=== PATIENT | female | born 1960 | race Caucasian/White ===

== ENCOUNTER → 2016-10-07 | Outpatient (CLI) | payer OTHER ==
[2016-10-07 09:02] LABS: CREATININE 1.1 mg/dL (0.6-1.0); DIRECT BILIRUBIN 0.1 mg/dL (0.0-0.2); GFR 51.6; TOTAL BILIRUBIN 0.4 mg/dL (0.2-1.0); TOTAL PROTEIN 7.4 g/dL (6.4-8.2)
--- NOTE | 2016-10-07 10:02 | RAD ---
EXAM: BREAST LEFT, MAMMO PIPE DIAG LT HISTORY: Follow-up of left breast mass. COMPARISON: April 06, 2016 Standard mammographic views are obtained of the bilateral breasts. This study was interpreted with the benefit of Computerized Aided Detection (CAD). FINDINGS: The breast parenchyma shows scattered fibroglandular densities. Breast parenchyma level B. There is repeat demonstration of a small well-circumscribed mass in the left upper outer breast which appears similar in appearance when compared to prior. The patient was then sent ultrasound to further evaluate the region. Focused ultrasound images were obtained through the 4:00 position of the left breast. At 4:00 position of the left breast 6 cm from the nipple there is repeat demonstration of a hypoechoic lesion which appears similar in appearance and size when compared to prior exam measuring approximately 4 x 3 mm which is similar to prior when measured in a similar plane. IMPRESSION: No major change in size of hypoechoic mass of the left breast when compared to prior exam. Recommend that the patient return in 6 months for repeat mammogram and ultrasound to ensure no growth. BI-RADS CATEGORY: 3 PROBABLE BENIGN-SHORT TERM F/U RECOMMENDED FOLLOW-UP: 6M 6 MONTH FOLLOW-UP PQRS compliance statement: Patient information was entered into a reminder system with a target due date for the next mammogram. Mammography is a sensitive method for finding small breast cancers, but it does not detect them all and is not a substitute for careful clinical examination. A negative mammogram does not negate a clinically suspicious finding and should not result in delay in biopsying a clinically suspicious abnormality. "Our facility is accredited by the [employer] Mammography [employer]."
== END | disposition home or self-care (01) ==
LOC: MAMMO 08:13
PROVIDERS: ATTEND Nurse Practitioner Family
DX: N63 Unspecified lump in breast (principal)
CPT/HCPCS: 36415; 76641; 80048; 80061; 80076; G0206; G0279; 77061; 77065

== ENCOUNTER → 2017-04-03 | Outpatient (CLI) | payer OTHER ==
--- NOTE | 2017-04-03 11:24 | RAD ---
DATE: 04/03/2017 EXAM: MAMMO PIPE KARISHMA BARNETT, BREAST LEFT HISTORY: Follow-up left breast lesion. COMPARISON: Left breast mammogram and ultrasound 10/07/2016 and 04/06/2017, 04/01/2016 This study was interpreted with the benefit of Computerized Aided Detection (CAD). The breast parenchyma shows scattered fibroglandular densities. Breast parenchyma level B. FINDINGS: Bilateral diagnostic mammogram: Bilateral digital 2-D and 3-D tomosynthesis CC and MLO views were obtained. There is stable bilateral circumscribed masses in the upper outer breasts. No new suspicious mass, calcination or architectural distortion. No significant change from prior examination. Limited left breast ultrasound: At the 4:00 position 6 cm from the nipple, there is no significant change in a 0.3 cm hypoechoic structure with internal debris and no internal blood flow. Impression: 1. Stable tiny left breast hypoechoic structure which may represent a complicated cyst. BI-RADS Category 3, probably benign findings. Follow-up limited left breast ultrasound in 6 months to assess for stability. 2. No mammographic evidence of malignancy in the right breast. BI-RADS CATEGORY: 3 PROBABLY BENIGN FINDING(S)-SHORT INTERVAL FOLLOW-UP SUGGESTED RECOMMENDED FOLLOW-UP: 6M 6 MONTH FOLLOW-UP PQRS compliance statement: Patient information was entered into a reminder system with a target due date for the next mammogram. Mammography is a sensitive method for finding small breast cancers, but it does not detect them all and is not a substitute for careful clinical examination. A negative mammogram does not negate a clinically suspicious finding and should not result in delay in biopsying a clinically suspicious abnormality. "Our facility is accredited by the [employer] Mammography [employer]."
== END | disposition home or self-care (01) ==
LOC: MAMMO 08:42
PROVIDERS: ATTEND Surgery
DX: R92.8 Other abnormal and inconclusive findings on diagnostic imaging of breast (principal); Z87.891 Personal history of nicotine dependence
CPT/HCPCS: 76641; 77066; G0279; 77062

== ENCOUNTER → 2017-10-25 | Outpatient (CLI) | payer OTHER ==
--- NOTE | 2017-10-25 08:53 | RAD ---
Left breast ultrasound, 10/25/2017: History: Follow-up nodule Previous studies have demonstrated a small smooth nodule at the 4:00 location approximately 6 cm from the nipple. It currently measures 3 x 4 x 3 mm. Its margins are smooth. There are low level internal echoes. There is no significant posterior acoustic enhancement or shadowing. It has a relatively benign appearance and probably represents a complicated cyst or small fibroadenoma. It has shown no definite change since studies dating back to 04/06/2016. No new abnormality is seen in this region. IMPRESSION: Unchanged probably benign left breast nodule. Follow-up left breast ultrasound in 6 months at the time of the patient's yearly mammography is suggested. BI-RADS 3-probably benign findings
== END | disposition home or self-care (01) ==
LOC: MAMMO 07:46
PROVIDERS: ATTEND Physician Assistant Medical
DX: R92.8 Other abnormal and inconclusive findings on diagnostic imaging of breast (principal); E55.9 Vitamin D deficiency, unspecified; E78.5 Hyperlipidemia, unspecified; Z87.891 Personal history of nicotine dependence
CPT/HCPCS: 76641

== ENCOUNTER → 2018-12-05 | Outpatient (CLI) | payer OTHER ==
[2018-12-05 09:50] LABS: BASO % 1 % (0-3); EOS # 0.1 x10^3/uL (0.0-0.7); EOS % 2 % (0-3); HEMOGLOBIN 13.9 g/dL (12.0-15.5); LYMPH # 1.9 x10^3/uL (1.0-4.8); LYMPH % 42 % (24-48); MEAN CORPUSCULAR HEMOGLOBIN 30 pg (25-35); MEAN CORPUSCULAR HGB CONC 34 g/dL (31-37); MEAN CORPUSCULAR VOLUME 88 fL (79-100); MONO # 0.4 x10^3/uL (0.0-1.1); MONO % 9 % (0-9); NEUT # 2.1 x10^3uL (1.8-7.7); NEUT % 46 % (31-73); PLATELET COUNT 286 x10^3/uL (140-400); RED BLOOD COUNT 4.64 x10^6/uL (3.50-5.40); RED CELL DISTRIBUTION WIDTH 12.6 % (11.5-14.5); WHITE BLOOD COUNT 4.4 x10^3/uL (4.0-11.0)
[2018-12-05 10:00] LABS: ALBUMIN/GLOBULIN RATIO 1.2 (1.0-1.7); C REACTIVE PROTEIN 2.8 mg/L (0-3.3); CALCIUM 9.5 mg/dL (8.5-10.1); CREATININE 1.1 mg/dL (0.6-1.0); POTASSIUM 4.2 mmol/L (3.5-5.1); TOTAL BILIRUBIN 0.4 mg/dL (0.2-1.0); TOTAL PROTEIN 7.4 g/dL (6.4-8.2)
[2018-12-05 10:57] LABS: SEDIMENTATION RATE 8 (0-25)
== END | disposition home or self-care (01) ==
LOC: LAB 07:44
PROVIDERS: ATTEND Internal Medicine Rheumatology
DX: M25.50 Pain in unspecified joint (principal)
CPT/HCPCS: 36415; 80053; 85025; 85651; 86140

== ENCOUNTER → 2018-12-24 | Outpatient (CLI) | payer OTHER ==
--- NOTE | 2018-12-24 13:44 | RAD ---
DATE: 12/24/2018 EXAM: MAMMO PIPE KARISHMA SCHROEDERAT, BREAST LEFT HISTORY: Left breast mass, six-month follow-up COMPARISON: Bilateral mammogram 04/03/2017, left mammogram 10/07/2016 This study was interpreted with the benefit of Computerized Aided Detection (CAD). Targeted sonographic evaluation of the left breast was performed. Breast Density: SCATTERED The breast parenchyma shows scattered fibroglandular densities. Breast parenchyma level B. FINDINGS: Bilateral CC and MLO views of the breasts were performed. Bilateral breast tomosynthesis was performed in CC and MLO projections. Right breast: There are no suspicious microcalcifications, masses or areas of architectural distortion. Left breast: There are no suspicious microcalcifications, masses or areas of architectural distortion. Findings are stable from prior mammogram. Targeted sonographic evaluation of the left breast was performed at the 4:00 position, 6 cm from the nipple. There is a stable hypoechoic mass with circumscribed margins which is parallel and suspected be cystic. Findings are not significantly changed dating back to 10/07/2016 and present benign. Findings favor a complicated cyst measuring 3 x 2 mm. IMPRESSION: Benign findings of the left breast with a 3 x 2 mm complicated cyst. Negative right breast. BI-RADS CATEGORY: 2 BENIGN FINDING(S) RECOMMENDED FOLLOW-UP: 12M 12 MONTH FOLLOW-UP PQRS compliance statement: Patient information was entered into a reminder system with a target due date 12/25/2019 for the next mammogram. Mammography is a sensitive method for finding small breast cancers, but it does not detect them all and is not a substitute for careful clinical examination. A negative mammogram does not negate a clinically suspicious finding and should not result in delay in biopsying a clinically suspicious abnormality. "Our facility is accredited by the [employer] Mammography Program."
== END | disposition home or self-care (01) ==
LOC: MAMMO 12:45
PROVIDERS: ATTEND Surgery
DX: R92.8 Other abnormal and inconclusive findings on diagnostic imaging of breast (principal); N64.89 Other specified disorders of breast
CPT/HCPCS: 76641; 77066; G0279; 77062

== ENCOUNTER → 2019-04-17 | Outpatient (CLI) | payer OTHER ==
--- NOTE | 2019-04-17 16:05 | RAD ---
RENAL COMPLETE BILATERAL History: Chronic kidney disease stage III Comparison: None. Findings: Multiple sonographic images of the kidneys and retroperitoneal structures are submitted. Right kidney measured 10.1 x 4.4 x 5.2 cm without hydronephrosis. Left kidney measured 10.7 x 4.8 x 3.5 cm. There is no hydronephrosis of either kidney. There is some increased echogenicity of the left renal parenchyma. Urinary bladder is not distended. Inferior vena cava and abdominal aorta are not imaged. There is some echogenicity along the superior left kidney otherwise difficult to characterize on submitted images. Impression: 1. There is no hydronephrosis of either kidney. There is nonspecific echogenicity along the superior aspect of left kidney otherwise difficult to characterize by this exam. Adjacent adrenal mass would be more definitively excluded with CT. There is some increased echogenicity most notable of the left kidney, may be due to medical renal disease. Electronically signed by: Gilbert Pat MD (04/17/2019 4:02 PM) [id number]
[2019-04-17 16:21] LABS: CALCIUM 9.2 mg/dL (8.5-10.1); CREATININE 0.9 mg/dL (0.6-1.0); GFR 64.3; PHOSPHORUS 3.5 mg/dL (2.6-4.7); POTASSIUM 3.8 mmol/L (3.5-5.1)
[2019-04-17 16:37] LABS: BASO % 1 % (0-3); EOS % 1 % (0-3); HEMOGLOBIN 13.7 g/dL (12.0-15.5); LYMPH # 1.6 x10^3/uL (1.0-4.8); LYMPH % 32 % (24-48); MEAN CORPUSCULAR HEMOGLOBIN 30 pg (25-35); MEAN CORPUSCULAR HGB CONC 33 g/dL (31-37); MEAN CORPUSCULAR VOLUME 89 fL (79-100); MONO # 0.3 x10^3/uL (0.0-1.1); MONO % 7 % (0-9); NEUT % 60 % (31-73); PLATELET COUNT 279 x10^3/uL (140-400); RED BLOOD COUNT 4.59 x10^6/uL (3.50-5.40); RED CELL DISTRIBUTION WIDTH 12.4 % (11.5-14.5)
[2019-04-17 16:58] LABS: CLARITY,URINE CLEAR; COLOR,URINE YELLOW
[2019-04-17 16:59] LABS: BACTERIA,URINE 0 /HPF (0-FEW); BILIRUBIN,URINE NEG (NEG); GLUCOSE,URINE NEG (NEG); NITRITE,URINE NEG (NEG); RBC,URINE 0 /HPF (0-2); SQUAMOUS EPITHELIAL CELL,UR FEW /LPF; UROBILINOGEN,URINE 0.2 mg/dL (0.2 mg/dL); WBC,URINE RARE /HPF (0-4)
[2019-04-18 03:06] LABS: C3 COMPLEMENT 133 mg/dL (82-167); C4 COMPLEMENT 19 mg/dL (14-44)
[2019-04-18 04:07] LABS: MICROALB RD UR 3.3 ug/mL (Not Estab.)
[2019-04-18 14:01] LABS: CREATININE,RANDOM URINE 53.5 mg/dL (Not Establ.)
[2019-04-18 19:07] LABS: ANA INTERP Negative (.)
[2019-04-19 15:07] LABS: IMMUNOGLOBULIN A 130 mg/dL (87-352); IMMUNOGLOBULIN G 805 mg/dL (700-1600); IMMUNOGLOBULIN M 34 mg/dL (26-217)
[2019-04-19 16:07] LABS: C ANCA <1:20 titer (Neg:<1:20); P ANCA <1:20 titer (Neg:<1:20)
[2019-04-19 21:06] LABS: ALBUM 4.3 g/dL (2.9-4.4); ALPHA 1 0.3 g/dL (0.0-0.4); ALPHA 2 0.8 g/dL (0.4-1.0); BETA 1.2 g/dL (0.7-1.3); GAMMA 0.7 g/dL (0.4-1.8); PROTEIN TOTAL 7.2 g/dL (6.0-8.5); SPEP AG RATIO 1.5 (0.7-1.7)
== END | disposition home or self-care (01) ==
LOC: US 15:12
PROVIDERS: ATTEND Family Medicine
DX: N18.3 Chronic kidney disease, stage 3 (moderate) (principal)
CPT/HCPCS: 36415; 76770; 80048; 81001; 82043; 82570; 84100; 84156; 84165; 85025; 86021; 86038; 86160; 86334; 87086

== ENCOUNTER → 2019-06-10 | Outpatient (CLI) | payer OTHER ==
[2019-06-10 09:06] LABS: BASO % 1 % (0-3); EOS % 1 % (0-3); HEMATOCRIT 42.9 % (36.0-47.0); HEMOGLOBIN 14.5 g/dL (12.0-15.5); LYMPH # 1.4 x10^3/uL (1.0-4.8); LYMPH % 24 % (24-48); MEAN CORPUSCULAR HEMOGLOBIN 30 pg (25-35); MEAN CORPUSCULAR HGB CONC 34 g/dL (31-37); MEAN CORPUSCULAR VOLUME 87 fL (79-100); MONO # 0.3 x10^3/uL (0.0-1.1); MONO % 6 % (0-9); NEUT # 3.9 x10^3uL (1.8-7.7); NEUT % 69 % (31-73); PLATELET COUNT 282 x10^3/uL (140-400); RED BLOOD COUNT 4.91 x10^6/uL (3.50-5.40); RED CELL DISTRIBUTION WIDTH 12.3 % (11.5-14.5); WHITE BLOOD COUNT 5.8 x10^3/uL (4.0-11.0)
[2019-06-10 09:10] LABS: ALBUMIN 4.1 g/dL (3.4-5.0); ALBUMIN/GLOBULIN RATIO 1.3 (1.0-1.7); CALCIUM 9.4 mg/dL (8.5-10.1); GFR 56.9; POTASSIUM 3.9 mmol/L (3.5-5.1); TOTAL BILIRUBIN 0.6 mg/dL (0.2-1.0); TOTAL PROTEIN 7.3 g/dL (6.4-8.2)
[2019-06-10 09:44] LABS: BILIRUBIN,URINE NEG (NEG); CLARITY,URINE HAZY; COLOR,URINE YELLOW; GLUCOSE,URINE NEG (NEG)
[2019-06-10 09:45] LABS: NITRITE,URINE NEG (NEG); UROBILINOGEN,URINE 0.2 mg/dL (0.2 mg/dL)
[2019-06-10 09:46] LABS: BACTERIA,URINE FEW /HPF (0-FEW); SQUAMOUS EPITHELIAL CELL,UR MOD /LPF
[2019-06-10 15:52] LABS: FREE T4 1.02 ng/dL (0.76-1.46); THYROID STIM HORMONE (TSH) 1.453 uIU/mL (0.358-3.740)
[2019-06-10 23:06] LABS: HEMOGLOBIN A1C 5.6 % (4.8-5.6)
== END | disposition home or self-care (01) ==
LOC: LAB 07:24
PROVIDERS: ATTEND Nurse Practitioner Adult Health
DX: N18.3 Chronic kidney disease, stage 3 (moderate) (principal)
CPT/HCPCS: 36415; 80053; 80061; 81001; 83036; 84439; 84443; 85025; 87086

== ENCOUNTER → 2019-07-02 | Outpatient (CLI) | payer OTHER ==
--- NOTE | 2019-07-02 10:56 | RAD ---
Exam: VENOUS LOWER EXTREMITY LEFT Indication: Left lower extremity pain Technique: Color-flow and pulsed wave duplex ultrasound with compression of venous structures of the left lower extremity. Comparison: None Available. Findings: Duplex ultrasound with compression of the deep venous structures of the left lower extremity from the common femoral vein through the popliteal vein is negative for DVT. The posterior tibial and peroneal veins are segmentally visualized and patent where seen. Normal venous waveforms and augmentation are noted throughout. Impression: No evidence for DVT in the left lower extremity. Electronically signed by: Gilbert Espinoza MD (07/02/2019 10:53 AM) [id number]
== END | disposition home or self-care (01) ==
LOC: US 10:14
PROVIDERS: ATTEND Family Medicine
DX: M79.662 Pain in left lower leg (principal)
CPT/HCPCS: 93971

== ENCOUNTER → 2019-09-16 | Outpatient (CLI) | payer OTHER ==
[2019-09-16 10:40] LABS: BASO % 1 % (0-3); EOS # 0.1 x10^3/uL (0.0-0.7); EOS % 2 % (0-3); HEMATOCRIT 40.1 % (36.0-47.0); HEMOGLOBIN 13.4 g/dL (12.0-15.5); LYMPH # 1.5 x10^3/uL (1.0-4.8); LYMPH % 38 % (24-48); MEAN CORPUSCULAR HEMOGLOBIN 30 pg (25-35); MEAN CORPUSCULAR HGB CONC 34 g/dL (31-37); MEAN CORPUSCULAR VOLUME 89 fL (79-100); MONO # 0.3 x10^3/uL (0.0-1.1); MONO % 9 % (0-9); NEUT % 51 % (31-73); PLATELET COUNT 289 x10^3/uL (140-400); RED BLOOD COUNT 4.49 x10^6/uL (3.50-5.40); RED CELL DISTRIBUTION WIDTH 12.9 % (11.5-14.5); WHITE BLOOD COUNT 3.9 x10^3/uL (4.0-11.0)
[2019-09-16 10:48] LABS: CALCIUM 9.3 mg/dL (8.5-10.1); CREATININE 1.1 mg/dL (0.6-1.0); POTASSIUM 4.3 mmol/L (3.5-5.1)
[2019-09-16 11:23] LABS: BACTERIA,URINE FEW /HPF (0-FEW); BILIRUBIN,URINE NEG (NEG); CLARITY,URINE HAZY; COLOR,URINE YELLOW; GLUCOSE,URINE NEG (NEG); NITRITE,URINE NEG (NEG); RBC,URINE OCC /HPF (0-2); UROBILINOGEN,URINE 0.2 mg/dL (0.2 mg/dL)
[2019-09-16 11:24] LABS: HYALINE CASTS, URINE OCC /HPF; SQUAMOUS EPITHELIAL CELL,UR FEW /LPF
[2019-09-16 20:06] LABS: MICROALB RD UR 11.3 ug/mL (Not Estab.)
[2019-09-17 00:07] LABS: CALCIUM PTH 9.8 mg/dL (8.7-10.2); CREATININE PTH 0.87 mg/dL (0.57-1.00); PTH INTACT 69 pg/mL (15-65)
== END | disposition home or self-care (01) ==
LOC: LAB 09:03
PROVIDERS: ATTEND Family Medicine
DX: N18.3 Chronic kidney disease, stage 3 (moderate) (principal)
CPT/HCPCS: 36415; 80048; 81001; 82043; 82570; 83970; 84156; 85025

== ENCOUNTER → 2019-10-15 | Outpatient (CLI) | payer OTHER | END | disposition home or self-care (01) | LOC: LAB 17:50 | PROVIDERS: ATTEND Internal Medicine Cardiovascular Disease | DX: Z20.828 Contact with and (suspected) exposure to other viral communicable diseases (principal); N18.3 Chronic kidney disease, stage 3 (moderate); M79.7 Fibromyalgia | CPT/HCPCS: C9803; U0003; 36415 ==

== ENCOUNTER → 2019-12-31 | Outpatient (CLI) | payer OTHER ==
[2019-12-31 08:40] LABS: CALCIUM 9.3 mg/dL (8.5-10.1); GFR 56.7; POTASSIUM 3.9 mmol/L (3.5-5.1)
[2019-12-31 08:42] LABS: BASO % 1 % (0-3); EOS # 0.1 x10^3/uL (0.0-0.7); EOS % 1 % (0-3); HEMATOCRIT 42.1 % (36.0-47.0); HEMOGLOBIN 14.1 g/dL (12.0-15.5); LYMPH # 1.5 x10^3/uL (1.0-4.8); LYMPH % 32 % (24-48); MEAN CORPUSCULAR HEMOGLOBIN 30 pg (25-35); MEAN CORPUSCULAR HGB CONC 34 g/dL (31-37); MEAN CORPUSCULAR VOLUME 90 fL (79-100); MONO # 0.3 x10^3/uL (0.0-1.1); MONO % 7 % (0-9); NEUT # 2.7 x10^3uL (1.8-7.7); NEUT % 59 % (31-73); PLATELET COUNT 290 x10^3/uL (140-400); RED CELL DISTRIBUTION WIDTH 12.2 % (11.5-14.5); WHITE BLOOD COUNT 4.6 x10^3/uL (4.0-11.0)
[2019-12-31 12:19] LABS: BILIRUBIN,URINE NEG (NEG); CLARITY,URINE CLEAR; COLOR,URINE YELLOW; GLUCOSE,URINE NEG (NEG)
[2019-12-31 12:20] LABS: BACTERIA,URINE 0 /HPF (0-FEW); NITRITE,URINE NEG (NEG); RBC,URINE 0 /HPF (0-2); SQUAMOUS EPITHELIAL CELL,UR FEW /LPF; UROBILINOGEN,URINE 0.2 mg/dL (0.2 mg/dL); WBC,URINE 0 /HPF (0-4)
[2019-12-31 23:07] LABS: CALCIUM PTH 9.7 mg/dL (8.7-10.2); CREATININE PTH 0.91 mg/dL (0.57-1.00); PTH INTACT 50 pg/mL (15-65)
[2020-01-01 06:08] LABS: MICRO CREAT RATIO 7 mg/g creat (0-29); MICROALB RD UR 9.2 ug/mL (Not Estab.); UR PROTEIN RD 9.5 mg/dL (Not Estab.)
== END ==
LOC: LAB 07:40
PROVIDERS: ATTEND Family Medicine
DX: N18.30 Chronic kidney disease, stage 3 unspecified (principal)
CPT/HCPCS: 36415; 80048; 81001; 82043; 82570; 83970; 84156; 85025

== ENCOUNTER → 2020-01-10 | Outpatient (CLI) | payer OTHER ==
--- NOTE | 2020-01-10 18:45 | RAD ---
DATE: 01/10/2020 EXAM: MAMMO PIPE SCREENING BILATERAL HISTORY: Screening COMPARISON: 03/26/2018, 04/03/2017, 10/07/2016, 2016 This study was interpreted with the benefit of Computerized Aided Detection (CAD). Breast Density: SCATTERED The breast parenchyma shows scattered fibroglandular densities. Breast parenchyma level B. FINDINGS: Multiple bilateral benign-appearing masses are unchanged. No mass, suspicious calcification, or architectural distortion in either breast. IMPRESSION: No evidence of malignancy. BI-RADS CATEGORY: 2 BENIGN FINDING(S) RECOMMENDED FOLLOW-UP: 12M 12 MONTH FOLLOW-UP PQRS compliance statement: Patient information was entered into a reminder system with a target due date for the next mammogram. Mammography is a sensitive method for finding small breast cancers, but it does not detect them all and is not a substitute for careful clinical examination. A negative mammogram does not negate a clinically suspicious finding and should not result in delay in biopsying a clinically suspicious abnormality. "Our facility is accredited by the [employer] Mammography Program."
== END ==
LOC: MAMMO 10:46
PROVIDERS: ATTEND Family Medicine
DX: Z12.31 Encounter for screening mammogram for malignant neoplasm of breast (principal)
CPT/HCPCS: 77063; 77067

== ENCOUNTER → 2020-01-13 | Outpatient (CLI) | payer OTHER ==
--- NOTE | 2020-01-13 17:17 | RAD ---
CHEST PA LATERAL Technique: PA and lateral views of the chest were obtained. Clinical History: Reason: CHEST PAIN, MID BACK PAIN / Spl. Instructions: / History: Comparison: None. Findings: The heart and pulmonary vasculature appear within normal limits. There is linear opacities in the lung bases. The pleural margins are clear. Impression: Mild basal infiltrates likely discoid atelectasis. Electronically signed by: Matt Buchanan III, MD (01/13/2020 5:14 PM) [facility]
== END ==
LOC: RAD 16:54
PROVIDERS: ATTEND Family Medicine
DX: R91.8 Other nonspecific abnormal finding of lung field (principal); R07.89 Other chest pain
CPT/HCPCS: 71046

== ENCOUNTER → 2020-02-19 | Outpatient (CLI) | payer OTHER ==
[2020-02-19] MEDS: REGADENOSON 0.4 MG/5 ML DISP.SYRIN. IV ONE (08:45)
--- NOTE | 2020-02-20 11:07 | RAD ---
MR#: [id number] Date of Study: 02/19/2020 Ordering Physician: STELLA MILIAN, Referring Physician: BARBY LING Tech: RT Pratibha (R) (N) APPROVED REPORT Test Type: Pharmacological Stress Nurse/Tech: Saige Ferrell Test Indications: CAD Resting Heart Rate: 60 bpm Resting Blood Pressure: 162/53mmHg Pharm. Details Pharmacologic stress testing was performed using 0.4mg per 5ml of regadenoson given intravenously ove r 7-10 seconds. POST EXERCISE Reason for Termination: Infusion complete Max HR: 136 bpm Max Blood Pressure: 149/53mmHg Blood Pressure response to exercise: Normal blood pressure response during stress. Heart Rate response to exercise: Normal Chest Pain: No. Arrhythmia: No. ST Change: No. INTERPRETATION Stress EKG Conclusion: No evidence of stress induced EKG changes. Imaging Protocol IMAGE PROTOCOL: Rest Tc-99m/stress Tc-99m 1 day Rest: Stress: Viability: Radiopharm.Tc99m FbnnybjsmGp77h Sestamibi Dose10.5mCi 33mCi Duration 15min. 15min. Img Date 02/19/2020 02/19/2020 Inj-Img [id number]. 60min. Rest Admin Site:IV - Left AntecubitalAdministrator: RT Pratibha (R)(N) Stress Admin Site: IV - Left AntecubitalAdministrator: RT Pratibha (R)(N) STRESS DATA End Diast. Vol.68.0mlAv. Heart Rate88.0bpm End Syst. Vol.5.0mlCO Index BSA0.0L/min Myocardial Ifcs703.0gEject. Vocorxav72.0% Stress Rates Pk. Fill Rate3.89EDV/secLVtime Pk. Fill 156.38msec Pk. Empty Rate4.92ESV/secLVtime Pk. Mlbvh275.27msec / Pk. Fill1.46EDV/sec Stress Scores Regional WT0.00Summed WT0.00 Regional WM0.00Summed WM0.00 The rest and stress images show normal perfusion, normal contraction and thickening. LV Perf. Quant 17 Seg. SSS0.00 17 Seg. SRS0.00 17 Seg. SDS0.00 Stress Defect Extent (% LAD)0.00Rest Defect Extent (% LAD)0.00Rev. Defect Extent (% LAD)0.00 Stress Defect Extent (% LCX) 11.30Rest Defect Extent (% LCX)0.00Rev. Defect Extent (% LCX)2.50 Stress Defect Extent (% RCA)0.00Rest Defect Extent (% RCA)0.00Rev. Defect Extent (% RCA)0.00 Stress Defect Extent (% ANALI)2.00Rest Defect Extent (% ANALI)0.00Rev. Defect Extent (% ANALI)0.40 Other Information Quality:Good Risk Assessment: Low Risk Conclusion 1. No evidence of EKG changes with stress testing. 2. Normal perfusion at stress/rest. 3. Low risk study. 4. EF > 60%. Signed by : Stella Milian, Electronically Approved : 02/20/2020 11:06:07
== END ==
LOC: NM 07:52
PROVIDERS: ATTEND Internal Medicine Cardiovascular Disease
DX: I25.10 Atherosclerotic heart disease of native coronary artery without angina pectoris (principal)
CPT/HCPCS: 78452; 93017; A9500; J2785

== ENCOUNTER → 2020-03-11 | Outpatient (CLI) | payer OTHER ==
[2020-03-11 17:35] LABS: AMPHETAMINE/METHAMPHETAMINE NEG (NEG); BARBITURATES NEG (NEG); BENZODIAZEPINES NEG (NEG); CANNABINOIDS NEG (NEG); COCAINE NEG (NEG); METHADONE NEG (NEG); OPIATES POS (NEG); PHENCYCLIDINE NEG (NEG)
== END ==
LOC: LAB 12:19
PROVIDERS: ATTEND Internal Medicine Rheumatology
DX: Z79.891 Long term (current) use of opiate analgesic (principal)
CPT/HCPCS: 36415; 80307

== ENCOUNTER → 2020-07-15 | Outpatient (CLI) | payer OTHER ==
[2020-07-15 12:26] LABS: BASO % 1 % (0-3); EOS # 0.1 x10^3/uL (0.0-0.7); EOS % 1 % (0-3); HEMATOCRIT 38.6 % (36.0-47.0); HEMOGLOBIN 13.1 g/dL (12.0-15.5); LYMPH # 1.4 x10^3/uL (1.0-4.8); LYMPH % 26 % (24-48); MEAN CORPUSCULAR HEMOGLOBIN 30 pg (25-35); MEAN CORPUSCULAR HGB CONC 34 g/dL (31-37); MEAN CORPUSCULAR VOLUME 89 fL (79-100); MONO # 0.4 x10^3/uL (0.0-1.1); MONO % 8 % (0-9); NEUT # 3.4 x10^3uL (1.8-7.7); NEUT % 64 % (31-73); PLATELET COUNT 261 x10^3/uL (140-400); RED BLOOD COUNT 4.33 x10^6/uL (3.50-5.40); RED CELL DISTRIBUTION WIDTH 12.7 % (11.5-14.5); WHITE BLOOD COUNT 5.3 x10^3/uL (4.0-11.0)
[2020-07-15 12:47] LABS: CALCIUM 9.4 mg/dL (8.5-10.1); GFR 56.7; PHOSPHORUS 3.5 mg/dL (2.6-4.7); POTASSIUM 4.2 mmol/L (3.5-5.1)
[2020-07-16 22:32] LABS: CREATININE,RANDOM URINE 330.8 mg/dL (Not Establ.)
== END ==
LOC: LAB 11:25
PROVIDERS: ATTEND Nurse Practitioner
DX: E11.22 Type 2 diabetes mellitus with diabetic chronic kidney disease (principal); N18.2 Chronic kidney disease, stage 2 (mild)
CPT/HCPCS: 80069; 82570; 83970; 84156; 85025

== ENCOUNTER 2020-08-12 15:15 | Emergency (ER) | payer OTHER ==
[~2020-08-12] VITALS: Ht 177.8 cm; Wt 79.5 kg
[2020-08-12 15:32] VITALS: BP 158/84
--- NOTE | 2020-08-12 15:52 | PHYS DOC ---
Past History Past Medical History: Fibromyalgia, High Cholesterol Past Surgical History: Appendectomy, Cholecystectomy, Tubal ligation, Other Smoking: Quit Greater Than 1 Year Alcohol Use: Rarely Drug Use: None Adult General Chief Complaint Chief Complaint: BACK PAIN OR INJURY HPI HPI Patient is a 59-year-old female presenting for lower back pain. No injury, no inciting event or mechanism of injury. Reports approximately 24 hours of worsening left sacroiliac pain. Patient took home Xanax and x2 [place] 5 prescribed to her for fibromyalgia without significant improvement in symptoms. She presented to work today, reports difficulty with changing body position. No red flag signs or symptoms of back pain such as chronic steroid abuse, weight loss, fever, IV drug use, midline spinal pain, no fever no trauma Review of Systems Review of Systems Fourteen body systems of review of systems have been reviewed. See HPI for pertinent positives and negative responses, other gallo all other systems are negative, non-pertinent or non-contributory Allergies Allergies Allergies Coded Allergies Type Severity Reaction Last Updated Verified nitrofurantoin Allergy Intermediate Nausea and Vomiting 09/03/13 No Physical Exam Physical Exam Constitutional: Well developed, well nourished, no acute distress, non-toxic appearance. HENT: Normocephalic, atraumatic, bilateral external ears normal, oropharynx moist, no oral exudates, nose normal. Eyes: PERRLA, EOMI, conjunctiva normal, no discharge. Neck: Normal range of motion, no tenderness, supple, no stridor. Cardiovascular: Heart rate regular, sinus rhythm, no murmurs rubs or gallops Lungs & Thorax: Bilateral breath sounds clear to auscultation Abdomen: Bowel sounds normal, soft, no tenderness, no masses, no pulsatile masses. Nonsurgical abdomen, no peritoneal signs Skin: Warm, dry, no erythema, no rash. Back: No midline tenderness, patient has point tenderness to left sacroiliac joint without palpable nor visible abnormalities, no CVA tenderness. Extremities: No tenderness, no cyanosis, no clubbing, ROM intact, no edema. Neurologic: Alert and oriented X 3, normal motor & sensory function to lower extremities, no bladder or bowel incontinence nor saddle anesthesia no focal deficits noted. Bilateral patellar reflexes 2+, TP and DP 2+ bilaterally Psychologic: Affect normal, judgement normal, mood normal. EKG EKG [] Radiology/Procedures Radiology/Procedures [] Heart Score C/O Chest Pain: No Risk Factors: Risk Factors: DM, Current or recent (<one month) smoker, HTN, HLP, family history of CAD, obesity. Risk Scores: Risk Factors: DM, Current or recent (<one month) smoker, HTN, HLP, family history of CAD, obesity. Course & Med Decision Making Course & Med Decision Making ABCs, history and physical examination non-concerning. There are no red flag signs of back pain present. I have low suspicion for malignancy/mets, acute Spinal Fracture, Vertebral Osteomyelitis, Epidural Abscess, Infected or Obstructing Kidney Stone etc. Patient presentation appears most likely to be secondary to non-emergent musculoskeletal etiology, likely sacroiliac dysfunction based on physical exam findings ED Workup: Defer imaging and labwork for outpatient follow up at this time. No emergent need for imaging at present Disposition: Discharge. Strict return precautions discussed with patient with full understanding. Advised patient to follow up promptly with primary care provider Ting Disclaimer Ting Disclaimer This electronic medical record was generated, in whole or in part, using a voice recognition dictation system. Departure Departure: Impression: Primary Impression: Sacroiliac dysfunction Disposition: HOME / SELF CARE / HOMELESS Condition: STABLE Referrals: WALTER HASSAN MD (PCP) Patient Instructions: Back Exercises, Generic, SportsMed Additional Instructions: You were evaluated in the Emergency Department today for sacroiliac pain. Your evaluation suggests no acute abnormalities which require further intervention at this time. Your pain is most likely due to to a musculoskeletal cause that should improve with supportive care. - Move around as tolerated but avoiding heavy lifting. ``Bed rest is not recommended nor is it the best treatment for low back pain. - Medications will help control your discomfort: - Continue taking home pain medications, applying heating pads and utilizing warm baths - Please utilized attached instructions for back exercises - Do not drink alcohol, drive a car, operate machinery, or get up on ladders or heights when taking any prescribed pain medications. - Do not drive home if you received prescribed pain medications here in the ED. Return to the ED immediately if you develop any of the following problems: - Leaking urine or difficulty urinating; - Inability to control your bowels; - New numbness or weakness in your legs or numbness between your legs; - Inability to walk - Fever LUIS MANUEL GILES DO August 12, 2020 15:52
== END 2020-08-12 16:00 | disposition home or self-care (01) ==
LOC: ER 15:15
DX: M53.3 Sacrococcygeal disorders, not elsewhere classified (principal); M54.5 Low back pain; M79.7 Fibromyalgia; E78.00 Pure hypercholesterolemia, unspecified; Z87.891 Personal history of nicotine dependence; Z90.49 Acquired absence of other specified parts of digestive tract; Z90.89 Acquired absence of other organs; Z98.51 Tubal ligation status; Z88.8 Allergy status to other drugs, medicaments and biological substances
CPT/HCPCS: 99282

== ENCOUNTER 2020-08-22 19:21 | Emergency (ER) | payer OTHER ==
[~2020-08-22] VITALS: Ht 177.8 cm; Wt 79.0 kg
[2020-08-22 20:12] VITALS: BP 136/67
--- NOTE | 2020-08-22 20:57 | PHYS DOC ---
Past History Past Medical History: Anxiety, Fibromyalgia Past Surgical History: No Surgical History Smoking: Quit Greater Than 1 Year Alcohol Use: None Drug Use: None Adult General Chief Complaint Chief Complaint: HEAT EXPOSURE HPI HPI Patient is a 59-year-old female with a past medical history significant for fibromyalgia and anxiety who presents to the emergency department with a chief complaint of lightheadedness. States that she had been outside pretty much all year and went out today into the heat and was outside for 3 to 4 hours lifting heavy bags of mulch. States that an hour or 2 ago right when she was getting down she felt lightheaded, hot and sweaty and had a little bit of nausea but did not throw up. States she went inside and started sipping some water. Denies any headache, changes in vision, chest pain, shortness of breath, abdominal pain, vomiting, dysuria, hematuria or blood in the stool. States she did eat some breakfast this morning but only had 1 glass of water and usually drinks quite a bit of water. Denies any recent travel, illnesses, fevers, known ill contacts. Review of Systems Review of Systems Review of systems otherwise unremarkable except noted in HPI Allergies Allergies Allergies Coded Allergies Type Severity Reaction Last Updated Verified nitrofurantoin Allergy Intermediate Nausea and Vomiting 09/03/13 No Physical Exam Physical Exam Constitutional: Well developed, well nourished, no acute distress, non-toxic appearance. [] HENT: Normocephalic, atraumatic, bilateral external ears normal, oropharynx dry, no oral exudates, nose normal. [] Eyes: PERRLA, EOMI, conjunctiva normal, no discharge. [] Neck: Normal range of motion, no tenderness, supple, no stridor. [] Cardiovascular:Heart rate regular rhythm, no murmur [] Lungs & Thorax: Bilateral breath sounds clear to auscultation [] Abdomen: soft, no tenderness, no masses, no pulsatile masses. [] Skin: Warm, dry, no erythema, no rash. Capillary refill 4 to 5 seconds [] Extremities: No tenderness, no cyanosis, no clubbing, ROM intact, no edema. [] Neurologic: Alert and oriented X 3, normal motor function, normal sensory fu nction, able to sit, stand and walk without issue no focal deficits noted. [] Psychologic: Affect normal, judgement normal, mood normal. [] Current Patient Data Vital Signs Vital Signs Date Time Temp Pulse Resp B/P (MAP) Pulse Ox O2 Delivery O2 Flow Rate FiO2 08/22/20 20:12 97.9 79 16 136/67 (90) 95 Room Air Lab Results Laboratory Tests Test 08/22/20 20:21 Glucose (Fingerstick) 100 mg/dL (70-99) H EKG EKG [] Radiology/Procedures Radiology/Procedures [] Heart Score C/O Chest Pain: No Risk Factors: Risk Factors: DM, Current or recent (<one month) smoker, HTN, HLP, family history of CAD, obesity. Risk Scores: Risk Factors: DM, Current or recent (<one month) smoker, HTN, HLP, family history of CAD, obesity. Course & Med Decision Making Course & Med Decision Making Patient is a 59-year-old female who presents to the emergency department with lightheadedness and concern for heat exposure Vital signs not concerning. Physical exam noted above. EKG noted above and normal. POC glucose normal. Patient able to take p.o. fluids in the ED without issue. Asymptomatic in the ED. Able to sit, stand and walk without issue. Discussed all findings with patient and heat exposure/exhaustion and heat stroke signs and symptoms. Advised to go home, drink plenty of fluids, stay inside out of the sun, stay cool and take all your medications as prescribed. Also to maintain proper nutrition. Advised to stay in the house tomorrow to rest. Advised to follow-up with primary care physician on Monday. Gave return precautions to the ED. Patient grateful, verbalized understanding and agreed with plan of discharge. [] Dragon Disclaimer Dragon Disclaimer This electronic medical record was generated, in whole or in part, using a voice recognition dictation system. Departure Departure: Impression: Primary Impression: Lightheadedness Additional Impressions: Dehydration Heat exposure Disposition: 01 HOME / SELF CARE / HOMELESS Condition: GOOD Referrals: WALTER HASSAN MD (PCP) Patient Instructions: Dehydration, Adult, Heat Disorders Additional Instructions: Please read all of the attached information very carefully to go back over what we discussed in the emergency department. Please be sure to drink plenty of fluids and eat a light healthy foods over the next couple of days. Please stay indoors, out of the sun and cool. Please call your primary care physician first thing Monday morning to discuss your ED visit and set up a follow-up. Please come back to the ED with new or concerning symptoms as discussed. Problem Qualifiers SJ CUMMINGS MD Aug 22, 2020 20:57
[2020-08-22 21:17] LABS: BILIRUBIN,URINE NEG (NEG); CLARITY,URINE CLEAR; COLOR,URINE YELLOW; GLUCOSE,URINE NEG (NEG)
[2020-08-22 21:18] LABS: NITRITE,URINE NEG (NEG); UROBILINOGEN,URINE 0.2 mg/dL (0.2 mg/dL)
[2020-08-22 21:24] LABS: BACTERIA,URINE FEW /HPF (0-FEW); RBC,URINE 0 /HPF (0-2); SQUAMOUS EPITHELIAL CELL,UR OCC /LPF
--- NOTE | 2020-08-23 06:55 | EKG ---
[address] [address] Test Date: 2020-08-22 Test Time: 20:10:43 Pat Name: JODIE NORTON Department: Room: Gender: F Pantograph Watcher: KAMALA : 1960 Requested By: SJ CUMMINGS Order Number: [id number] Reading MD: Measurements Intervals [place] Rate: 63 P: 55 [place]: 182 QRS: 36 QRSD: 82 T: 42 QT: 400 QTc: 412 Interpretive Statements SINUS RHYTHM LEFT ATRIAL ABNORMALITY ABNORMAL ECG RI6.02 No previous ECG available for comparison
== END 2020-08-22 21:11 | disposition home or self-care (01) ==
LOC: ER 19:21
DX: R42 Dizziness and giddiness (principal); E86.0 Dehydration; M79.7 Fibromyalgia; Z88.3 Allergy status to other anti-infective agents; Z87.891 Personal history of nicotine dependence
CPT/HCPCS: 81001; 82947; 87086; 93005; 99284-25

== ENCOUNTER → 2020-11-24 | Outpatient (CLI) | payer BC, OTHER ==
--- NOTE | 2020-11-25 16:01 | RAD ---
DATE: 11/24/2020 EXAM: MAMMO PIPE SCREENING BILATERAL HISTORY: Screening COMPARISON: 01/10/2020, 12/24/2018, 04/03/2017, 04/01/2016 This study was interpreted with the benefit of Computerized Aided Detection (CAD). Breast Density: SCATTERED The breast parenchyma shows scattered fibroglandular densities. Breast parenchyma level B. FINDINGS: Multiple bilateral benign-appearing masses are unchanged. No suspicious mass, suspicious calcification, or architectural distortion in either breast. IMPRESSION: No evidence of malignancy. BI-RADS CATEGORY: 2 BENIGN FINDING(S) RECOMMENDED FOLLOW-UP: 12M 12 MONTH FOLLOW-UP PQRS compliance statement: Patient information was entered into a reminder system with a target due date for the next mammogram. Mammography is a sensitive method for finding small breast cancers, but it does not detect them all and is not a substitute for careful clinical examination. A negative mammogram does not negate a clinically suspicious finding and should not result in delay in biopsying a clinically suspicious abnormality. "Our facility is accredited by the [employer] Mammography [employer]."
== END ==
LOC: MAMMO 13:52
PROVIDERS: ATTEND Family Medicine
DX: Z12.31 Encounter for screening mammogram for malignant neoplasm of breast (principal)
CPT/HCPCS: 77063; 77067